=== PATIENT | male | born 1975 | race African-American/Black ===

== ENCOUNTER 2024-08-15 04:07 | Emergency (ER) | payer BC ==
--- NOTE | 2024-08-15 04:40 | ER ---
Nurse's Notes [facility] Name: Bobby Guajardo Age: 48 yrs Sex: Male : 1975 Arrival Date: 08/15/2024 Time: 04:07 Bed 20 Private MD: Diagnosis: Acute serous otitis media, left ear Presentation: 08/15 04:31 Chief complaint: Patient states: left ear pain that started tonight. Coronavirus cp4 screen: Client denies travel out of the [place] in the last 14 days. At this time, the client does not indicate any symptoms associated with coronavirus-19. Ebola Screen: Patient negative for fever greater than or equal to 101.5 degrees Fahrenheit, and additional compatible Ebola Virus Disease symptoms Patient denies exposure to infectious person. Patient denies travel to an Ebola-affected area in the 21 days before illness onset. No symptoms or risks identified at this time. Initial Sepsis Screen: Does the patient meet any 2 criteria? No. Patient's initial sepsis screen is negative. Does the patient have a suspected source of infection? No. Patient's initial sepsis screen is negative. Risk Assessment: Do you want to hurt yourself or someone else? Patient reports no desire to harm self or others. Onset of symptoms was August 14, 2024. 04:31 Method Of Arrival: Ambulatory cp4 04:31 Acuity: DONTE 4 cp4 Triage Assessment: 04:32 General: Appears in no apparent distress. comfortable, Behavior is calm, cooperative, cp4 appropriate for age. Pain: Complains of pain in left ear. EENT: Reports pain in left ear. Neuro: Level of Consciousness is awake, alert, obeys commands, Oriented to person, place, time, situation. Cardiovascular: Patient's skin is warm and dry. Respiratory: Airway is patent Respiratory effort is even, unlabored. GI: No signs and/or symptoms were reported involving the gastrointestinal system. : No signs and/or symptoms were reported regarding the genitourinary system. Derm: No signs and/or symptoms reported regarding the dermatologic system. Musculoskeletal: No signs and/or symptoms reported regarding the musculoskeletal system. Historical: - Allergies: 04:32 No Known Allergies; cp4 - Immunization history:: Adult Immunizations up to date. - Infectious Disease History:: Denies. Denies. - Social history:: Smoking status: Patient denies any tobacco usage or history of. Screenin:34 [facility] ED Fall Risk Assessment (Adult) History of falling in the last 3 months, cp4 including since admission No falls in past 3 months (0 pts) Confusion or Disorientation No (0 pts) Intoxicated or Sedated No (0 pts) Impaired Gait No (0 pts) Mobility Assist Device Used No (0 pt) Altered Elimination No (0 pt) Score/Fall Risk Level 0 - 2 = Low Risk Oriented to surroundings, Maintained a safe environment, Assessed \T\ reinforced patient's understanding of fall precautions, Hourly rounding (assess needs \T\ fall precautionary measures) done. Abuse screen: Denies threats or abuse. Nutritional screening: No deficits noted. Tuberculosis screening: No symptoms or risk factors identified. Assessment: 04:34 Reassessment: No changes from previously documented assessment. cp4 04:52 Reassessment: Patient left prior to getting medication. cp4 Vital Signs: 04:31 BP 132 / 93; Pulse 54; Resp 18; Temp 98.1; Pulse Ox 100% ; Weight 88.45 kg; Height 6 cp4 ft. 2 in. ; Pain 7/10; 04:31 Body Mass Index 25.04 (88.45 kg, 187.96 cm) cp4 04:31 Pain Scale: Adult cp4 ED Course: 04:12 Patient arrived in ED. gm2 04:19 Sam Baez MD is Attending Physician. ec2 04:31 Reyna Ross is Primary Nurse. cp4 04:32 Triage completed. cp4 04:32 Arm band placed on right wrist. Patient placed in waiting room. cp4 04:34 Bed in low position. Call light in reach. Side rails up X 1. Provided Education on: ear cp4 pain. 04:34 No provider procedures requiring assistance completed. cp4 04:52 Patient did not have IV access during this emergency room visit. cp4 Administered Medications: 04:51 Not Given (Patient Refused): amoxicillin- mg PO once cp4 04:51 Not Given (Patient Refused): ofloxacindrops 0.3 % 1 drops Ophthalmic once; give otic cp4 Medication: 04:34 VIS not applicable for this client. cp4 Outcome: 04:40 Discharge ordered by . ec2 04:52 Discharged to home ambulatory, cp4 04:52 Condition: stable 04:52 Discharge instructions given to patient, Instructed on discharge instructions, follow up and referral plans. medication usage, Demonstrated understanding of instructions, follow-up care, medications, Prescriptions given X 2, 04:53 Patient left the ED. cp4 Signatures: Sam Baez MD MD ec2 Reyna Ross cp4 Kandi Noonan 2
--- NOTE | 2024-08-15 04:40 | EDPHYS ---
Physician Documentation [facility] Name: Bobby Guajardo Age: 48 yrs Sex: Male : 1975 Arrival Date: 08/15/2024 Time: 04:07 Bed 20 Private MD: ED Physician Sam Baez HPI: 08/15 04:41 This 48 yrs old Black Male presents to ER via Ambulatory with complaints of Ear Pain. ec2 04:41 Patient arrives today for evaluation of left ear pain. Patient reports that he has been ec2 experiencing left ear pain since earlier this morning. No fevers or chills, no nausea or vomiting. No drainage.. Historical: - Allergies: 04:32 No Known Allergies; cp4 - Immunization history:: Adult Immunizations up to date. - Infectious Disease History:: Denies. Denies. - Social history:: Smoking status: Patient denies any tobacco usage or history of. ROS: 04:41 Constitutional: as per hpi ec2 Exam: 04:41 Constitutional: GEN: NAD Head: atraumatic Eyes: EOMI Ears: External ears are normal. ec2 Cerumen impaction noted in the left ear, does have erythema in the ear canal. CV: regular rate LUNGS: no respiratory distress ABD: non-distended SKIN: no evidence of rashes MSK: no evidence of trauma Vital Signs: 04:31 BP 132 / 93; Pulse 54; Resp 18; Temp 98.1; Pulse Ox 100% ; Weight 88.45 kg; Height 6 cp4 ft. 2 in. ; Pain 7/10; 04:31 Body Mass Index 25.04 (88.45 kg, 187.96 cm) cp4 04:31 Pain Scale: Adult cp4 MDM: 04:24 Medical Screening Exam initiated ec2 04:41 Data reviewed: vital signs. ED course: Patient arrives today for ear pain. Examination ec2 remarkable for otic findings as above. Will treat for otitis media. Will discharge to home per return precautions given.. Administered Medications: 04:51 Not Given (Patient Refused): amoxicillin-[id number] mg PO once cp4 04:51 Not Given (Patient Refused): ofloxacindrops 0.3 % 1 drops Ophthalmic once; give otic cp4 Disposition Summary: 08/15/24 04:40 Discharge Ordered Notes: Location: Home ec2 Condition: Stable ec2 Diagnosis - Acute serous otitis media, left ear ec2 Followup: ec2 - With: Private Physician - When: - Reason: Re-evaluation by your physician Discharge Instructions: - Discharge Summary Sheet ec2 - Otitis Media, Adult ec2 Forms: - Medication Reconciliation Form ec2 - Antibiotic Education ec2 - Prescription Opioid Use ec2 - Patient Portal Instructions ec2 - Leadership Thank You Letter ec2 Prescriptions: - ofloxacin 0.3 % Otic drops - instill 10 drop OTIC route every 24 hours; 5 milliliter; Refills: 0, Product ec2 Selection Permitted - Augmentin 875-125 mg Oral Tablet - take 1 tablet ORAL route every 12 hours for 10 days; 20 tablet; Refills: 0, ec2 Product Selection Permitted Signatures: Sam Baez MD MD ec2 Reyna Ross cp4
[2024-08-15 05:01] VITALS: BP 132/93; TEMP 98.1; O2SAT 100
== END 2024-08-15 04:53 | disposition home or self-care (01) ==
LOC: ER 04:07
DX: H65.02 Acute serous otitis media, left ear (principal); H61.22 Impacted cerumen, left ear
CPT/HCPCS: 99283

== ENCOUNTER 2024-11-14 06:53 | Emergency (ER) | payer SELFPAY ==
[2024-11-14] MEDS ORDERED: ACETAMINOPHEN 500 MG TAB ONE (07:29)
[2024-11-14] MEDS ORDERED: dexAMETHasone 10 MG/ML VIAL ONE (07:32)
[2024-11-14] MEDS ORDERED: NA CHLORIDE 0.9% 250 ML ONE (07:33)
[2024-11-14] MEDS ORDERED: METOCLOPRAMIDE 10 MG/2mL INJ ONE (07:33)
[2024-11-14] MEDS ORDERED: KETOROLAC 30 MG/ML INJ ONE (07:33)
[2024-11-14 07:59] LABS: Absolute Lymphocytes (CBC) 1.5 K/uL (0.7-4.9); Absolute Monocytes 1.1 K/uL (0.1-1.3); Absolute Neutrophil 6.8 K/uL (1.8-8.0); Basophils % 0.5 % (0-1.3); Hematocrit 44.2 % (39.6-49.0); Hemoglobin 14.8 g/dL (13.6-17.9); Lymphocytes % 15.8 % (15.3-44.8); MCHC 33.5 g/dL (32.0-36.0); MCV 95.5 fL (80-100); MPV 7.8 fL (7.6-11.3); Monocytes % 11.5 % (3.3-12.3); Neutrophils % 72.2 % (41.7-73.7); Nucleated Red Blood Cells % 0.1 % (0-0); Platelets 172 thou/uL (152-406); RBC Red Blood Cell Count 4.63 M/uL (4.33-5.43); Red Cell Distribution Width 14.3 % (12.1-15.2)
[2024-11-14 08:07] LABS: Anion Gap 7.7 mEq/L (5.0-15.0); Potassium 3.7 mEq/L (3.5-5.1)
[2024-11-14 08:18] LABS: SARS-CoV-2 Antigen CONTROL BLUE LINE VIS/BG OK; SARS-CoV-2 Antigen Rapid Res Negative (Negative)
--- NOTE | 2024-11-14 09:29 | ER ---
Nurse's Notes [facility] Name: Bobby Guajardo Age: 49 yrs Sex: Male : 1975 Arrival Date: 11/14/2024 Time: 06:53 Bed 6 Private MD: Diagnosis: Viral infection, unspecified;Influenza due to identified novel influenza A virus Presentation: 11/14 07:13 Chief complaint: Patient states: COUGH, CONGESTION, AND SORE THROAT X2 DAYS. 6 Coronavirus screen: At this time, the client does not indicate any symptoms associated with coronavirus-19. Ebola Screen: No symptoms or risks identified at this time. Initial Sepsis Screen: Does the patient meet any 2 criteria? No. Patient's initial sepsis screen is negative. Does the patient have a suspected source of infection? No. Patient's initial sepsis screen is negative. Risk Assessment: Do you want to hurt yourself or someone else? Patient reports no desire to harm self or others. Onset of symptoms was November 14, 2024. 07:13 Method Of Arrival: Ambulatory [facility] 07:13 Acuity: DONTE 4 kc6 Historical: - Allergies: 07:14 No Known Allergies; kc6 - PMHx: 07:14 Atrial fibrillation; Hypercholesterolemia; kc6 - PSHx: 07:14 None; kc6 - Immunization history:: Adult Immunizations up to date. - Infectious Disease History:: Denies. - Social history:: Smoking status: Patient denies any tobacco usage or history of. Screenin:14 [facility] ED Fall Risk Assessment (Adult) History of falling in the last 3 months, kc6 including since admission No falls in past 3 months (0 pts) Confusion or Disorientation No (0 pts) Intoxicated or Sedated No (0 pts) Impaired Gait No (0 pts) Mobility Assist Device Used No (0 pt) Altered Elimination No (0 pt) Score/Fall Risk Level 0 - 2 = Low Risk Oriented to surroundings, Maintained a safe environment, Educated pt \T\ family on fall prevention, incl call for assistance when getting out of bed. Abuse screen: Denies threats or abuse. Denies injuries from another. Nutritional screening: No deficits noted. Tuberculosis screening: No symptoms or risk factors identified. Assessment: 07:15 General: Appears in no apparent distress. uncomfortable, well groomed, well developed, kc6 Behavior is calm, cooperative, appropriate for age. Pain: Complains of pain in mid-sternal area Pain does not radiate. Pain currently is 10 out of 10 on a pain scale. Neuro: Level of Consciousness is awake, alert, obeys commands, Oriented to person, place, time, situation, Appropriate for age. Cardiovascular: Reports chest pain, Heart tones S1 S2 present Capillary refill < 3 seconds. Respiratory: Reports cough that is productive, pain with cough pain with respiration Airway is patent Trachea midline Respiratory effort is even, unlabored, Respiratory pattern is regular, symmetrical. GI: No signs and/or symptoms were reported involving the gastrointestinal system. : No signs and/or symptoms were reported regarding the genitourinary system. EENT: Reports nasal congestion pain when swallowing. Derm: No signs and/or symptoms reported regarding the dermatologic system. Skin is intact, is healthy with good turgor, Skin is pink, warm \T\ dry. Musculoskeletal: No signs and/or symptoms reported regarding the musculoskeletal system. Circulation, motion, and sensation intact. Range of motion: intact in all extremities. 08:13 Reassessment: Patient appears in no apparent distress at this time. No changes from [facility] previously documented assessment. Patient and/or family updated on plan of care and expected duration. Pain level reassessed. Patient is alert, oriented x 3, equal unlabored respirations, skin warm/dry/pink. 09:45 Reassessment: Patient appears in no apparent distress at this time. Patient and/or hb family updated on plan of care and expected duration. Pain level reassessed. Patient is alert, oriented x 3, equal unlabored respirations, skin warm/dry/pink. Vital Signs: 07:13 BP 136 / 80; Pulse 77; Resp 16 S; Temp 99.2(O); Pulse Ox 97% on R/A; Weight 86.18 kg kc6 (R); Height 6 ft. 2 in. (R); Pain 10/10; 07:13 Body Mass Index 24.39 (86.18 kg, 187.96 cm) [facility] 07:13 Pain Scale: Adult [facility] ED Course: 06:55 Patient arrived in ED. jj6 07:00 Sam Baez MD is Attending Physician. ec2 07:13 uSsy Hernandez RN is Primary Nurse. kc6 07:14 Triage completed. kc6 07:14 Arm band placed on. kc6 07:15 Patient has correct armband on for positive identification. Bed in low position. Call kc6 light in reach. Side rails up X 1. Pulse ox on. NIBP on. Door closed. Noise minimized. Lights dimmed. Pillow given. 07:54 Initial lab(s) drawn, by me, sent to lab. Inserted saline lock: 22 gauge in left kb4 forearm, using aseptic technique. Blood collected. Flushed with 10 mL NS. 09:10 COVID swab sent to lab. Flu and/or RSV swab sent to lab. Strep swab sent to lab. kb4 09:42 CXR XRAY In Process Unspecified. EDMS 09:45 No provider procedures requiring assistance completed. IV discontinued, intact, hb bleeding controlled, No redness/swelling at site. Pressure dressing applied. Administered Medications: 07:47 Drug: Acetaminophen PO 1000 mg PO once Route: PO; kc6 08:14 Follow up: Response: No adverse reaction kc6 07:48 Drug: metoCLOPramide IVP 10 mg IVP once; over 1 to 2 minutes Route: IVP; Site: left kc6 antecubital; 08:14 Follow up: Response: No adverse reaction kc6 07:48 Drug: Ketorolac IVP 15 mg IVP once Route: IVP; Site: left antecubital; kc6 08:14 Follow up: Response: No adverse reaction kc6 07:48 Drug: Decadron - Dexamethasone IVP 10 mg IVP once Route: IVP; Site: left antecubital; kc6 08:14 Follow up: Response: No adverse reaction kc6 07:48 Drug: NS 0.9% IV 250 ml IV at bolus once; to be given as a bolus over 30 minutes Route: kc6 IV; Rate: bolus; Site: left antecubital; 08:14 Follow up: Response: No adverse reaction; IV Status: Completed infusion; IV Intake: kc6 250ml Medication: 09:46 VIS not applicable for this client. hb Intake: 08:14 IV: 250ml; Total: 250ml. kc6 Outcome: 09:29 Discharge ordered by ec2 09:45 Discharged to home ambulatory, hb 09:45 Condition: stable 09:45 Discharge instructions given to patient, Instructed on discharge instructions, follow up and referral plans. medication usage, Demonstrated understanding of instructions, follow-up care, medications, Prescriptions given X 3 09:46 Patient left the ED. Signatures: Dispatcher [employer] Luna Gomez RN RN Flakita Simon6 Susy Hernandez RN RN kc6 Sam Baez MD MD ec2 Leonarda Ferreira kb4
--- NOTE | 2024-11-14 09:30 | EDPHYS ---
Physician Documentation [facility] Name: Bobby Guajardo Age: 49 yrs Sex: Male : 1975 Arrival Date: 11/14/2024 Time: 06:53 Bed 6 Private MD: ED Physician Sam Baez HPI: 11/14 07:20 This 49 yrs old Black Male presents to ER via Ambulatory with complaints of Cough, ec2 Congestion, Sore Throat. 07:20 Patient arrives today for evaluation of URI signs and symptoms. Reports 2 days of cough ec2 and cold symptoms along with sore throat, odynophagia, nausea. Reports decreased p.o. intake, fatigue and subjective fevers and chills.. Historical: - Allergies: 07:14 No Known Allergies; kc6 - PMHx: 07:14 Atrial fibrillation; Hypercholesterolemia; kc6 - PSHx: 07:14 None; kc6 - Immunization history:: Adult Immunizations up to date. - Infectious Disease History:: Denies. - Social history:: Smoking status: Patient denies any tobacco usage or history of. ROS: 07:21 Constitutional: as per hpi ec2 Exam: 07:21 Constitutional: GEN: NAD Head: atraumatic Eyes: EOMI Ears: External ears are ec2 normal. CV: regular rate LUNGS: no respiratory distress, no focal lung deficits ABD: non-distended SKIN: no evidence of rashes MSK: no evidence of trauma Vital Signs: 07:13 BP 136 / 80; Pulse 77; Resp 16 S; Temp 99.2(O); Pulse Ox 97% on R/A; Weight 86.18 kg kc6 (R); Height 6 ft. 2 in. (R); Pain 10/10; 07:13 Body Mass Index 24.39 (86.18 kg, 187.96 cm) kc6 07:13 Pain Scale: Adult kc6 MDM: 07:11 Medical Screening Exam initiated ec2 07:21 Data reviewed: vital signs, nurses notes. ED course: patient arrives today for upper ec2 respiratory symptoms. Examination is revealing for nontoxic hemodynamically stable individuals otherwise in no acute distress. Will obtain viral swabs, chest x-ray. Suspect viral infection.. 09:29 ED course: Chest x-ray independently reviewed and interpreted by me, shows no acute ec2 intrathoracic process, no lobar pneumonia. Presentation is with the influenza. Will discharge home. Return precautions given.. 11/14 07:14 Order name: Strep ec2 11/14 07:14 Order name: Influenza Screen (a \T\ B); Complete Time: 08:12 ec2 11/14 07:14 Order name: SARS RAPID; Complete Time: 08:40 ec2 11/14 07:14 Order name: RSV; Complete Time: 08:54 ec2 11/14 07:20 Order name: CBC with Diff; Complete Time: 08:12 ec2 11/14 07:20 Order name: BMP; Complete Time: 08:12 ec2 11/14 08:15 Order name: Throat Culture EDMS 11/14 08:39 Order name: CXR XRAY ec2 11/14 07:20 Order name: IV; Complete Time: 07:48 ec2 Administered Medications: 07:47 Drug: Acetaminophen PO 1000 mg PO once Route: PO; kc6 08:14 Follow up: Response: No adverse reaction kc6 07:48 Drug: metoCLOPramide IVP 10 mg IVP once; over 1 to 2 minutes Route: IVP; Site: left kc6 antecubital; 08:14 Follow up: Response: No adverse reaction kc6 07:48 Drug: Ketorolac IVP 15 mg IVP once Route: IVP; Site: left antecubital; kc6 08:14 Follow up: Response: No adverse reaction kc6 07:48 Drug: Decadron - Dexamethasone IVP 10 mg IVP once Route: IVP; Site: left antecubital; kc6 08:14 Follow up: Response: No adverse reaction kc6 07:48 Drug: NS 0.9% IV 250 ml IV at bolus once; to be given as a bolus over 30 minutes Route: kc6 IV; Rate: bolus; Site: left antecubital; 08:14 Follow up: Response: No adverse reaction; IV Status: Completed infusion; IV Intake: kc6 250ml Disposition Summary: 11/14/24 09:29 Discharge Ordered Notes: Location: Home ec2 Condition: Stable ec2 Diagnosis - Viral infection, unspecified ec2 - Influenza due to identified novel influenza A virus ec2 Followup: ec2 - With: Private Physician - When: - Reason: Re-evaluation by your physician Discharge Instructions: - Discharge Summary Sheet ec2 - Viral Illness, Adult ec2 Forms: - Work release form eb - Medication Reconciliation Form ec2 - Antibiotic Education ec2 - Prescription Opioid Use ec2 - Patient Portal Instructions ec2 - Leadership Thank You Letter ec2 Prescriptions: - Zofran 4 mg Oral Tablet - take 1 tablet ORAL route every 12 hours As needed; 20 tablet; Refills: 0, ec2 Product Selection Permitted - Tessalon Perles 100 mg Oral Capsule - take 1 capsule ORAL route every 8 hours As needed; 15 capsule; Refills: 0, ec2 Product Selection Permitted - Prednisone 20 mg Oral Tablet - take 2 tablets ORAL route once daily for 5 days; 10 tablet; Refills: 0, Product ec2 Selection Permitted Signatures: Dispatcher [employer] Susy Avilez RN RN kc6 Sam Baez MD MD ec2 Corrections: (The following items were deleted from the chart) 07:16 07:16 Group A Streptococcus Rapid Sc+BA.LAB.BRZ ordered. DAMIEN QUEZADA
--- NOTE | 2024-11-14 09:46 | RAD REPORT ---
EXAM: Chest Single View HISTORY: coug COMPARISON: None. FINDINGS: LUNGS/PLEURA: The lungs are clear. No pleural effusions or pneumothorax. No pulmonary edema. MEDIASTINUM: The mediastinal silhouette is within normal limits. CARDIAC: The cardiac silhouette is within normal limits. UPPER ABDOMEN: No significant abnormality. BONES: No acute abnormality. LINES/TUBES/OTHER: N/A IMPRESSION: No evidence of acute cardiopulmonary disease.
[2024-11-14 10:05] VITALS: BP 136/80; TEMP 99.2; O2SAT 97
== END 2024-11-14 09:46 | disposition home or self-care (01) ==
LOC: ER 06:53
DX: J10.1 Influenza due to other identified influenza virus with other respiratory manifestations (principal); Z11.52 Encounter for screening for COVID-19
CPT/HCPCS: 36415; 71045; 80048; 85025; 87070; 87081; 87804; 87807; 87811; 96365; 96375; 99284; J1100; J2765; J7050

== ENCOUNTER 2024-12-01 17:33 | Emergency (ER) | payer SELFPAY ==
[2024-12-01 18:48] LABS: Specific Gravity 1.026 (1.005-1.030); Urine Bilirubin NEGATIVE (Negative); Urine Blood Negative (Negative); Urine Clarity Clear (Clear); Urine Color Light-Yellow (Yellow); Urine Glucose NEGATIVE (Negative); Urine Ketones NEGATIVE (Negative); Urine Microscopic Reflex YN NO UMIC; Urine Nitrite NEGATIVE (Negative); Urine Protein NEGATIVE (Negative); Urine Urobilinogen 2+ (Normal); Urine pH 6.5 (5.0-7.0)
--- NOTE | 2024-12-01 19:28 | RAD REPORT ---
EXAMINATION: TWO VIEW CHEST XR CLINICAL INDICATION: Male, 49 years old. [facility] MAIN Cough;Dyspnea Bed Name: [facility] TECHNIQUE: 2 view radiographs of the chest were performed. COMPARISON: 11/14/2024 FINDINGS: The lungs are well inflated and clear. No pneumothorax or sizable effusion. The heart is normal in si ze. Mediastinal contours are unremarkable. IMPRESSION: No acute or significant abnormalities.
--- NOTE | 2024-12-01 19:48 | EDPHYS ---
Physician Documentation [facility] Name: Bobby Guajardo Age: 49 yrs Sex: Male : 1975 Arrival Date: 12/01/2024 Time: 17:33 Bed DX4 Private MD: ED Physician Ponce Ruiz HPI: 12/01 18:00 This 49 yrs old Black Male presents to ER via Unassigned with complaints of Cough, kb Congestion. 18:00 Pt is a 49 year old male who presents for shortness of breath and chills that has been kb ongoing since he had the flu 3 weeks ago. Also reports he has been drinking a lot of water, but his urine remains dark. Denies fever. Still having slight cough when he takes a deep breath. Historical: - Allergies: 18:11 No Known Allergies; iw - PMHx: 18:11 Atrial fibrillation; Hypercholesterolemia; iw - Immunization history:: Adult Immunizations up to date. - Infectious Disease History:: Denies. - Social history:: Smoking status: unknown. ROS: 18:00 Constitutional: As per HPI kb Exam: 18:00 Constitutional: This is a well developed, well nourished patient who is awake, alert, kb and in no acute distress. Head/Face: Normocephalic, atraumatic. ENT: Moist Mucous membranes Cardiovascular: Regular rate Respiratory: Respirations even and unlabored. No increased work of breathing. Talking in full sentences Abdomen/GI: Soft, non-tender. No distention Skin: Warm, dry with normal turgor. Normal color. MS/ Extremity: Pulses equal, no cyanosis. Neurovascular intact. Full, normal range of motion. Neuro: Awake and alert, GCS 15, oriented to person, place, time, and situation. Vital Signs: 18:10 BP 121 / 79; Pulse 70; Resp 15; Temp 97.2; Pulse Ox 99% ; Weight 89.81 kg; Height 6 ft. iw 2 in. ; 18:10 Body Mass Index 25.42 (89.81 kg, 187.96 cm) iw MDM: 17:41 Medical Screening Exam initiated kb 19:47 Differential Diagnosis: Bronchitis Influenza Upper Respiratory Infection Viral Syndrome kb Pneumonia. Data reviewed: vital signs, nurses notes. Counseling: I had a detailed discussion with the patient and/or guardian regarding the historical points, exam findings, and any diagnostic results supporting the discharge/admit diagnosis, lab results, radiology results, the need for outpatient follow up, a family practitioner, to return to the emergency department if symptoms worsen or persist or if there are any questions or concerns that arise at home. 12/01 18:02 Order name: Urinalysis w/ reflexes; Complete Time: 18:54 kb 12/01 18:02 Order name: Chest Pa And Lat (2 Views) XRAY; Complete Time: 19:29 kb Administered Medications: No medications were administered Disposition: 21:02 Co-signature as Attending Physician, Ponce Ruiz MD I reviewed the patient's care rt provided by the Advanced Practice Provider and agree with the diagnosis and treatment plan. Disposition Summary: 12/01/24 19:47 Discharge Ordered Notes: Location: Home kb Condition: Stable kb Diagnosis - Cough kb Followup: kb - With: Emergency Department - When: As needed - Reason: Worsening of condition Followup: kb - With: Private Physician - When: 2 - 3 days - Reason: Recheck today's complaints, Continuance of care, Re-evaluation by your physician Discharge Instructions: - Discharge Summary Sheet kb - Cough, Adult, [id number] kb Forms: - Medication Reconciliation Form kb - Antibiotic Education kb - Prescription Opioid Use kb - Patient Portal Instructions kb - Leadership Thank You Letter kb Prescriptions: - albuterol sulfate 90 mcg/actuation Inhalation HFA Aerosol Inhaler - inhale 2 puff INHALATION route every 4-6 hours As needed; 1 unit; Refills: 0, kb Product Selection Permitted - Tessalon Perles 100 mg Oral Capsule - take 1 capsule ORAL route every 8 hours As needed; 15 capsule; Refills: 0, kb Product Selection Permitted Signatures: Dispatcher [employer] Sharron Jefferson, CONFERENCE TRANSLATOR-C CONFERENCE TRANSLATOR-Edwige García, Ponce Neil RN, MD MD rt Corrections: (The following items were deleted from the chart) 18:02 18:02 Urinalysis+U.LAB.BRZ ordered. DAMIEN QUEZADA
--- NOTE | 2024-12-01 19:48 | ER ---
Nurse's Notes [facility] Name: Bobby Guajardo Age: 49 yrs Sex: Male : 1975 Arrival Date: 12/01/2024 Time: 17:33 Bed DX4 Private MD: Diagnosis: Cough Presentation: 12/01 18:02 Chief complaint: Patient states: flu a few weeks ago , sill having SOB , dark colored iw urine. Coronavirus screen: Client presents with at least one sign or symptom that may indicate coronavirus-19. Ebola Screen: No symptoms or risks identified at this time. Initial Sepsis Screen: Does the patient meet any 2 criteria? No. Patient's initial sepsis screen is negative. Does the patient have a suspected source of infection? No. Patient's initial sepsis screen is negative. Risk Assessment: Do you want to hurt yourself or someone else? Patient reports no desire to harm self or others. 18:02 Acuity: DONTE 4 iw 18:02 Method Of Arrival: Ambulatory iw 18:10 Onset of symptoms is unknown. iw Triage Assessment: 20:16 General: Appears in no apparent distress. vc1 20:19 General: Behavior is calm, cooperative. Pain: Complains of pain in chest. EENT: No vc1 deficits noted. No signs and/or symptoms were reported regarding the EENT system. Neuro: Level of Consciousness is awake, alert, obeys commands, Oriented to person, place, time, situation, Appropriate for age. Cardiovascular: Capillary refill < 3 seconds. Respiratory: Airway is patent Respiratory effort is even, unlabored, Respiratory pattern is regular, symmetrical, Breath sounds are clear bilaterally. GI: No deficits noted. No signs and/or symptoms were reported involving the gastrointestinal system. : No deficits noted. No signs and/or symptoms were reported regarding the genitourinary system. Derm: Skin is intact, is healthy with good turgor, Skin is dry. Musculoskeletal: Circulation, motion, and sensation intact. Range of motion: intact in all extremities. Historical: - Allergies: 18:11 No Known Allergies; iw - PMHx: 18:11 Atrial fibrillation; Hypercholesterolemia; iw - Immunization history:: Adult Immunizations up to date. - Infectious Disease History:: Denies. - Social history:: Smoking status: unknown. Screenin:[facility] Fall Risk Assessment (Adult) History of falling in the last 3 months, vc1 including since admission No falls in past 3 months (0 pts) Confusion or Disorientation No (0 pts) Intoxicated or Sedated No (0 pts) Impaired Gait No (0 pts) Mobility Assist Device Used No (0 pt) Altered Elimination No (0 pt) Score/Fall Risk Level 0 - 2 = Low Risk Oriented to surroundings, Maintained a safe environment, Educated pt \T\ family on fall prevention, incl call for assistance when getting out of bed. Abuse screen: Denies threats or abuse. Nutritional screening: No deficits noted. Tuberculosis screening: No symptoms or risk factors identified. Vital Signs: 18:10 BP 121 / 79; Pulse 70; Resp 15; Temp 97.2; Pulse Ox 99% ; Weight 89.81 kg; Height 6 ft. iw 2 in. ; 18:10 Body Mass Index 25.42 (89.81 kg, 187.96 cm) iw ED Course: 17:34 Patient arrived in ED. al6 17:41 [facility]C [facility] kb 17:41 Ponce Ruiz MD is Attending Physician. kb 18:03 Triage completed. iw 18:11 Arm band placed on. iw 18:27 Chest Pa And Lat (2 Views) XRAY In Process Unspecified. EDMS 20:15 Patient has correct armband on for positive identification. seen in diagnostic chair. vc1 20:16 No provider procedures requiring assistance completed. Patient did not have IV access vc1 during this emergency room visit. 20:21 Provided Education on: take medication. vc1 Administered Medications: No medications were administered Medication: 20:15 VIS not applicable for this client. vc1 Outcome: 19:47 Discharge ordered by . kb 20:21 Discharged to home ambulatory, vc1 20:21 Condition: stable 20:21 Discharge instructions given to patient, Instructed on discharge instructions, follow up and referral plans. Demonstrated understanding of instructions, follow-up care, medications, Prescriptions given X 2, 20:21 Patient left the ED. vc1 Signatures: Dispatcher [employer] EDMS Sharron Starks FNP-C FNP-Ckb Williams, Irene, RN RN iw Siobhan Rowley RN RN vc1 Simi Golden al6 Corrections: (The following items were deleted from the chart) 18:10 18:10 Pulse 70bpm; Resp 15bpm; Pulse Ox 99%; Temp 97.2F; 89.81 kg; Height 6 ft. 2 in.; iw BMI: 25.4; iw
[2024-12-01 20:36] VITALS: BP 121/79; TEMP 97.2; O2SAT 99
== END 2024-12-01 20:21 | disposition home or self-care (01) ==
LOC: ER 17:33
DX: R05.9 Cough, unspecified (principal)
CPT/HCPCS: 71046; 81003

== ENCOUNTER 2024-12-04 22:25 | Emergency (ER) | payer SELFPAY ==
[2024-12-04] MEDS ORDERED: ONDANSETRON 4 MG/2 ML VIAL ONE (23:16)
[2024-12-04] MEDS ORDERED: MECLIZINE HCL 12.5 MG TAB ONE (23:17)
[2024-12-04] MEDS ORDERED: NA CHLORIDE 0.9% 1,000 ML ONE (23:17)
--- NOTE | 2024-12-04 23:17 | RAD REPORT ---
EXAM DESCRIPTION: Chest Single View CLINICAL HISTORY: CHEST PAIN COMPARISON: None TECHNIQUE: 2 AP views of the chest. FINDINGS: Lung volumes adequate. Cardiac silhouette is normal in size. No pneumothorax. No large pleural effusion. No focal consolidation. No acute bony finding. IMPRESSION: No acute cardiopulmonary findings. Electronically signed by: Arlene Hickman MD 12/04/2024 11:05 PM [facility] Z9 Transcribed Date/Time: 12/04/2024 11:17 PM
[2024-12-04 23:48] LABS: Absolute Eosinophils 0.1 K/uL (0-0.5); Absolute Lymphocytes (CBC) 2.2 K/uL (0.7-4.9); Absolute Monocytes 0.7 K/uL (0.1-1.3); Basophils % 0.4 % (0-1.3); Eosinophils % 1.5 % (0-4.4); Hematocrit 38.3 % (39.6-49.0); Hemoglobin 13.1 g/dL (13.6-17.9); Lymphocytes % 31.5 % (15.3-44.8); MCH 32.2 pg (27.0-35.0); MCHC 34.2 g/dL (32.0-36.0); MCV 94.1 fL (80-100); MPV 8.1 fL (7.6-11.3); Neutrophils % 56.6 % (41.7-73.7); Nucleated Red Blood Cells % 0.3 % (0-0); Platelets 195 thou/uL (152-406); RBC Red Blood Cell Count 4.07 M/uL (4.33-5.43); Red Cell Distribution Width 13.8 % (12.1-15.2)
[2024-12-05 00:10] LABS: PT Prothrombin Time 12.9 SECONDS (10.0-13.0); Protime INR 1.14
[2024-12-05 00:25] LABS: Albumin 3.3 g/dL (3.4-5.0); Bilirubin Direct 0.2 mg/dL (0-0.2); Bilirubin Indirect, Calculated 1.1 mg/dL (0.2-0.8); Bilirubin Total 1.3 mg/dL (0.2-1.0); Globulin 3.3 g/dL (2.3-3.5); Protein, Total 6.6 g/dL (6.4-8.2); Troponin High Sensitivity 10.2 pg/mL (<58.9)
[2024-12-05 00:26] LABS: Magnesium 2.2 mg/dL (1.6-2.4)
--- NOTE | 2024-12-05 01:23 | ER ---
Nurse's Notes [facility] Name: Bobby Guajardo Age: 49 yrs Sex: Male : 1975 Arrival Date: 12/04/2024 Time: 22:25 Bed 8 Private MD: Diagnosis: Acute labyrinthitis, Acute positional peripheral vertigo Presentation: 12/04 22:32 Chief complaint: Patient states: dizziness and nausea since this morning. ha1 22:32 Coronavirus screen: Client denies travel out of the [place] in the last 14 days. Ebola ha1 Screen: No symptoms or risks identified at this time. Initial Sepsis Screen: Does the patient meet any 2 criteria? RR > 20 per min. Does the patient have a suspected source of infection? No. Patient's initial sepsis screen is negative. Risk Assessment: Do you want to hurt yourself or someone else? Patient reports no desire to harm self or others. Onset of symptoms was December 04, 2024. 22:32 Method Of Arrival: Ambulatory ha1 22:32 Acuity: DONTE 3 ha1 Historical: - Allergies: 22:30 No Known Allergies; ha1 - PMHx: 22:30 Atrial fibrillation; Hypercholesterolemia; vertigo (2019); ha1 - Immunization history:: Adult Immunizations not up to date. - Infectious Disease History:: Denies. - Social history:: Smoking status: unknown. - Family history:: not pertinent. Screenin:33 [facility] ED Fall Risk Assessment (Adult) History of falling in the last 3 months, bm8 including since admission No falls in past 3 months (0 pts) Confusion or Disorientation No (0 pts) Intoxicated or Sedated No (0 pts) Impaired Gait No (0 pts) Mobility Assist Device Used No (0 pt) Altered Elimination No (0 pt) Score/Fall Risk Level 0 - 2 = Low Risk Oriented to surroundings, Maintained a safe environment, Educated pt \T\ family on fall prevention, incl call for assistance when getting out of bed, Provided non-skid footwear, Hourly rounding (assess needs \T\ fall precautionary measures) done, Used ambulatory aids as needed (educated on \T\ assisted with), Used gait belt as appropriate. Abuse screen: Denies threats or abuse. Nutritional screening: No deficits noted. Tuberculosis screening: No symptoms or risk factors identified. Assessment: 23:33 Reassessment: Patient appears in no apparent distress at this time. Patient and/or bm8 family updated on plan of care and expected duration. Pain level reassessed. Patient is alert, oriented x 3, equal unlabored respirations, skin warm/dry/pink. Patient denies pain at this time. General: Appears in no apparent distress. comfortable, Behavior is calm, cooperative, appropriate for age. Pain: Denies pain. Neuro: Level of Consciousness is awake, alert, obeys commands, Oriented to person, place, time, situation, Appropriate for age Reports dizziness, since this morning. Cardiovascular: Denies chest pain, shortness of breath, Capillary refill < 3 seconds in bilateral fingers. Respiratory: Airway is patent Respiratory effort is even, unlabored, Respiratory pattern is regular, symmetrical, Breath sounds are clear bilaterally. GI: Abdomen is flat, non-distended, Reports nausea. : No signs and/or symptoms were reported regarding the genitourinary system. EENT: No signs and/or symptoms were reported regarding the EENT system. Derm: No signs and/or symptoms reported regarding the dermatologic system. Musculoskeletal: No signs and/or symptoms reported regarding the musculoskeletal system. 12/05 00:35 Reassessment: Patient appears in no apparent distress at this time. Patient and/or bm8 family updated on plan of care and expected duration. Pain level reassessed. Patient is alert, oriented x 3, equal unlabored respirations, skin warm/dry/pink. Patient denies pain at this time. Patient states feeling better. Patient states symptoms have improved. 01:34 Reassessment: Patient appears in no apparent distress at this time. Patient and/or bm8 family updated on plan of care and expected duration. Pain level reassessed. Patient is alert, oriented x 3, equal unlabored respirations, skin warm/dry/pink. Patient denies pain at this time. Patient states feeling better. Patient states symptoms have improved. Vital Signs: 12/04 22:32 BP 138 / 95; Pulse 56; Resp 17 S; Temp 97.6(T); Pulse Ox 100% on R/A; Weight 89.81 kg; ha1 Height 6 ft. 2 in. ; 23:33 BP 137 / 88; Pulse 56; Resp 18; Temp 97.6; Pulse Ox 100% ; Pain 0/10; bm8 03/01 00:35 BP 128 / 78; Pulse 58; Resp 16; Temp 97.6; Pulse Ox 100% ; Pain 0/10; bm8 01:29 BP 124 / 82; Pulse 52; Resp 18; Temp 97.6; Pulse Ox 100% ; Pain 0/10; bm8 12/04 22:32 Body Mass Index 25.42 (89.81 kg, 187.96 cm) ha1 23:33 Pain Scale: Adult bm8 12/05 00:35 Pain Scale: Adult bm8 01:29 Pain Scale: Adult bm8 Hunter Coma Score: 12/04 23:33 Eye Response: spontaneous(4). Motor Response: obeys commands(6). Verbal Response: bm8 oriented(5). Total: 15. 12/05 00:35 Eye Response: spontaneous(4). Motor Response: obeys commands(6). Verbal Response: bm8 oriented(5). Total: 15. 01:29 Eye Response: spontaneous(4). Motor Response: obeys commands(6). Verbal Response: bm8 oriented(5). Total: 15. 05:47 Eye Response: spontaneous(4). Motor Response: obeys commands(6). Verbal Response: sp4 oriented(5). Total: 15. NIH Stroke Scale Scores: 05:51 NIHSS Score: 0 sp4 ED Course: 12/04 22:28 Patient arrived in ED. gm2 22:38 Rick Cantu MD is Attending Physician. sp4 22:45 Triage completed. ha1 22:54 XRAY Chest (1 view) In Process Unspecified. EDMS 23:13 Luisito Cruz, RN is Primary Nurse. bm8 23:32 No provider procedures requiring assistance completed. Initial lab(s) drawn, by cain miguel sent to lab. EKG done, by ED staff, reviewed by Rick Cantu MD. Inserted saline lock: 20 gauge in right antecubital area, using aseptic technique. Blood collected. Flushed with 10 mL NS. Patient maintains SpO2 saturation greater than 95% on room air. 23:33 Patient has correct armband on for positive identification. Bed in low position. Call bm8 light in reach. Side rails up X 1. Client placed on continuous cardiac and pulse oximetry monitoring. NIBP monitoring applied. security monitor on. Pulse ox on. NIBP on. Door closed. Noise minimized. Warm blanket given. Pillow given. Verbal reassurance given. Head of bed elevated. 12/05 01:34 IV discontinued, intact, bleeding controlled, No redness/swelling at site. Pressure bm8 dressing applied. 01:34 Provided Education on: post er care. bm8 01:35 Arm band placed on right wrist. bm8 Administered Medications: 12/04 23:31 Drug: NS 0.9% IV 1000 ml IV at 1 bolus Per protocol; to be given as a bolus over 60 bm8 minutes Route: IV; Rate: 1 bolus; Site: right antecubital; 12/05 00:37 Follow up: Response: No adverse reaction; IV Status: Completed infusion; IV Intake: bm8 1000ml 12/04 23:32 Drug: Meclizine PO 50 mg PO once Route: PO; bm8 12/05 00:37 Follow up: Response: No adverse reaction bm8 12/04 23:32 Drug: Ondansetron IVP 8 mg IVP once; over 2 minutes Route: IVP; Site: right antecubital;bm8 12/05 00:37 Follow up: Response: No adverse reaction bm8 Medication: 12/04 23:33 VIS not applicable for this client. bm8 Intake: 12/05 00:37 IV: 1000ml; Total: 1000ml. bm8 Outcome: 01:23 Discharge ordered by MD. boone 01:34 Discharged to home ambulatory, bm8 01:34 Condition: stable 01:34 Discharge instructions given to patient, Instructed on discharge instructions, follow up and referral plans. no drinking with medication, no driving heavy equipment, medication usage, safety practices, Demonstrated understanding of instructions, follow-up care, medications, Prescriptions given X 2, 01:37 Patient left the ED. ha1 NIH Stroke Scale - NIH Stroke Score Date: 12/05/2024 Time: 05:51 Total Score = 0 10. Dysarthria (speech clarity - read or repeat words) - 0(Normal) 11. Extinction and Inattention (visual/tactile/auditory/spatial/personal) - 0(No abnormality) 1a. Level of Consciousness (LOC) - 0(Alert) 1b. Level of Consciousness (LOC) (Month \T\ Age) - 0(Both) 1c. LOC Commands (Open \T\ Closes Eyes/Feather Maker) - 0(Both) 2. Best Gaze (Lateral Gaze Paresis) - 0(Normal) 3. Visual Field Loss - 0(No visual loss) 4. Facial Palsy - 0(Normal) 5a. Left Arm: Motor (10-second hold) - 0(No drift) 5b. Right Arm: Motor (10-second hold) - 0(No drift) 6a. Left Leg: Motor (5-second hold - always test supine) - 0(No drift) 6b. Right Leg: Motor (5-second hold - always test supine) - 0(No drift) 7. Limb Ataxia (finger/nose \T\ heel/marroquin - test with eyes open) - 0(Absent) 8. Sensory Loss (pinprick arms/legs/face) - 0(Normal) 9. Best Language: Aphasia (description/naming/reading) - 0(No aphasia) Initials: sp4 Signatures: Dispatcher [employer] EDXochitl Daniels RN RN ha1 Rick Cantu MD MD sp4 Kandi Noonan 2 Luisito Cruz RN RN bm8 Corrections: (The following items were deleted from the chart) 12/04 22:48 22:30 PMHx: verttigo (Hypercholesterolemia); ha1 ha1
--- NOTE | 2024-12-05 01:24 | EDPHYS ---
Physician Documentation [facility] Name: Bobby Guajardo Age: 49 yrs Sex: Male : 1975 Arrival Date: 12/04/2024 Time: 22:25 Bed 8 Private MD: ED Physician Rick Cantu HPI: 12/04 22:38 This 49 yrs old Black Male presents to ER via Unassigned with complaints of Dizziness. sp4 12/05 05:47 Patient presents with acute onset of dizziness and vertigo associated with nausea.. sp4 Historical: - Allergies: 12/04 22:30 No Known Allergies; ha1 - PMHx: 22:30 Atrial fibrillation; Hypercholesterolemia; vertigo (2019); ha1 - Immunization history:: Adult Immunizations not up to date. - Infectious Disease History:: Denies. - Social history:: Smoking status: unknown. - Family history:: not pertinent. ROS: 12/05 05:47 Constitutional: Negative for fever, chills, and weight loss, positive nausea, positive sp4 vertigo, positive dizziness All other systems are negative, Exam: 05:47 Constitutional: This is a well developed, well nourished patient who is awake, alert, sp4 and in no acute distress. Head/Face: Normocephalic, atraumatic. Eyes: Pupils equal round and reactive to light, extra-ocular motions intact. Lids and lashes normal. Conjunctiva and sclera are not injected. Cornea within normal limits. Periorbital areas with no swelling, redness, or edema. ENT: Nares patent. No nasal discharge, no septal abnormalities noted. Tympanic membranes are normal and external auditory canals are clear. Oropharynx with no redness, swelling, or masses, exudates, or evidence of obstruction, uvula midline. Mucous membranes moist. Neck: Trachea midline, no thyromegaly or masses palpated, and no cervical lymphadenopathy. Supple, full range of motion without nuchal rigidity, or vertebral point tenderness. Chest/axilla: Normal chest wall appearance and motion. Nontender with no deformity. No lesions are appreciated. Cardiovascular: Regular rate and rhythm with a normal S1 and S2. No gallops, murmurs, or rubs. Normal PMI, no JVD. No pulse deficits. Respiratory: Lungs have equal breath sounds bilaterally, clear to auscultation and percussion. No rales, rhonchi or wheezes noted. No increased work of breathing, no retractions or nasal flaring. Abdomen/GI: Soft, with normal bowel sounds. No distension or tympany. No guarding or rebound. No evidence of tenderness throughout. Back: No spinal tenderness. No costovertebral tenderness. Skin: Warm, dry with normal turgor. Normal color with no rashes, no lesions, and no evidence of cellulitis. MS/ Extremity: Pulses equal, no cyanosis. Neurovascular intact. Full, normal range of motion. Neuro: Awake and alert, GCS 15, oriented to person, place, time, and situation. Cranial nerves II-XII grossly intact. Motor strength 5/5 in all extremities. Sensory grossly intact. Psych: Awake, alert, with orientation to person, place and time. Behavior, mood, and affect are within normal limits 05:47 ECG was reviewed by the Attending Physician. EKG 2314 Vital Signs: 12/04 22:32 BP 138 / 95; Pulse 56; Resp 17 S; Temp 97.6(T); Pulse Ox 100% on R/A; Weight 89.81 kg; ha1 Height 6 ft. 2 in. ; 23:33 BP 137 / 88; Pulse 56; Resp 18; Temp 97.6; Pulse Ox 100% ; Pain 0/10; bm8 12/05 00:35 BP 128 / 78; Pulse 58; Resp 16; Temp 97.6; Pulse Ox 100% ; Pain 0/10; bm8 01:29 BP 124 / 82; Pulse 52; Resp 18; Temp 97.6; Pulse Ox 100% ; Pain 0/10; bm8 12/04 22:32 Body Mass Index 25.42 (89.81 kg, 187.96 cm) ha1 23:33 Pain Scale: Adult bm8 12/05 00:35 Pain Scale: Adult bm8 01:29 Pain Scale: Adult bm8 NIH Stroke Scale Scores: 05:51 NIHSS Score: 0 sp4 Hunter Coma Score: 12/04 23:33 Eye Response: spontaneous(4). Motor Response: obeys commands(6). Verbal Response: bm8 oriented(5). Total: 15. 12/05 00:35 Eye Response: spontaneous(4). Motor Response: obeys commands(6). Verbal Response: bm8 oriented(5). Total: 15. 01:29 Eye Response: spontaneous(4). Motor Response: obeys commands(6). Verbal Response: bm8 oriented(5). Total: 15. 05:47 Eye Response: spontaneous(4). Motor Response: obeys commands(6). Verbal Response: sp4 oriented(5). Total: 15. MDM: 12/04 22:38 Medical Screening Exam initiated 4 12/05 01:22 ED course: 49-year-old male presents with acute vertigo associated with nausea. Patient sp4 is feeling unwell after he got off work today in the evening. Patient does report history of prior vertigo. Vertigo with sudden onset. 05:50 Differential diagnosis: cardiac arrhythmia, CVA, generalized weakness, head injury, sp4 TIA, vertigo. 05:51 Data reviewed: vital signs, nurses notes, lab test result(s), EKG, radiologic studies, sp4 plain films. ED course: EXAM DESCRIPTION: Chest Single View CLINICAL HISTORY: CHEST PAIN COMPARISON: None TECHNIQUE: 2 AP views of the chest. FINDINGS: Lung volumes adequate. Cardiac silhouette is normal in size. No pneumothorax. No large pleural effusion. No focal consolidation. No acute bony finding. IMPRESSION: No acute cardiopulmonary findings. . 12/04 22:38 Order name: Basic Metabolic Panel; Complete Time: 01:05 [facility] 12/04 22:38 Order name: CBC with Diff; Complete Time: 01:05 [facility] 12/04 22:38 Order name: LFT's; Complete Time: 01:05 [facility] 12/04 22:38 Order name: Magnesium; Complete Time: 01:05 [facility] 12/04 22:38 Order name: NT PRO-BNP; Complete Time: 01:05 [facility] 12/04 22:38 Order name: PT-INR; Complete Time: 01:05 [facility] 12/04 22:38 Order name: Troponin HS; Complete Time: 01:05 [facility] 12/04 22:38 Order name: XRAY Chest (1 view) [facility] 12/04 22:38 Order name: EKG; Complete Time: 22:39 [facility] 12/04 22:38 Order name: Cardiac monitoring; Complete Time: 23:32 [facility] 12/04 22:38 Order name: EKG - Nurse/Tech; Complete Time: 23:32 sp4 12/04 22:38 Order name: IV Saline Lock; Complete Time: 23:32 sp4 12/04 22:38 Order name: Labs collected and sent; Complete Time: 23:32 sp4 12/04 22:38 Order name: O2 Per Protocol; Complete Time: 23:32 sp4 12/04 22:38 Order name: O2 Sat Monitoring; Complete Time: 23:32 sp4 EC/28 23:14 Rate is 58 beats/min. Rhythm is regular, Sinus bradycardia. QRS [place] is Normal. MT sp4 interval is normal. QRS interval is normal. QT interval is normal. No Q waves. T waves are Normal. No ST changes noted. Clinical impression: No evidence of ischemia. Interpreted by me. Reviewed by me. Administered Medications: 23:31 Drug: NS 0.9% IV 1000 ml IV at 1 bolus Per protocol; to be given as a bolus over 60 bm8 minutes Route: IV; Rate: 1 bolus; Site: right antecubital; 12/05 00:37 Follow up: Response: No adverse reaction; IV Status: Completed infusion; IV Intake: bm8 1000ml 12/04 23:32 Drug: Meclizine PO 50 mg PO once Route: PO; bm8 12/05 00:37 Follow up: Response: No adverse reaction bm8 12/04 23:32 Drug: Ondansetron IVP 8 mg IVP once; over 2 minutes Route: IVP; Site: right antecubital;bm8 12/05 00:37 Follow up: Response: No adverse reaction bm8 Disposition Summary: 12/05/24 01:23 Discharge Ordered Notes: Location: Home sp4 Problem: new sp4 Symptoms: have improved sp4 Condition: Stable sp4 Diagnosis - Acute labyrinthitis, Acute positional peripheral vertigo sp4 Followup: sp4 - With: Private Physician - When: 7 - 10 days - Reason: Recheck today's complaints Discharge Instructions: - Discharge Summary Sheet sp4 - Benign Positional Vertigo sp4 Forms: - Patient Portal Instructions sp4 - Work release form bm8 Prescriptions: - Meclizine 25 mg Oral tablet - take 1 tablet ORAL route every 8 hours As needed PRN vertigo; 30 tablet; sp4 Refills: 0, Product Selection Permitted - ondansetron 8 mg Oral Tablet,disintegrating - take 1 tablet ORAL route every 8 hours PRN nausea; 30 tablet; Refills: 0, sp4 Product Selection Permitted NIH Stroke Scale - NIH Stroke Score Date: 12/05/2024 Time: 05:51 Total Score = 0 10. Dysarthria (speech clarity - read or repeat words) - 0(Normal) 11. Extinction and Inattention (visual/tactile/auditory/spatial/personal) - 0(No abnormality) 1a. Level of Consciousness (LOC) - 0(Alert) 1b. Level of Consciousness (LOC) (Month \T\ Age) - 0(Both) 1c. LOC Commands (Open \T\ Closes Eyes/Computer Technology Trainer) - 0(Both) 2. Best Gaze (Lateral Gaze Paresis) - 0(Normal) 3. Visual Field Loss - 0(No visual loss) 4. Facial Palsy - 0(Normal) 5a. Left Arm: Motor (10-second hold) - 0(No drift) 5b. Right Arm: Motor (10-second hold) - 0(No drift) 6a. Left Leg: Motor (5-second hold - always test supine) - 0(No drift) 6b. Right Leg: Motor (5-second hold - always test supine) - 0(No drift) 7. Limb Ataxia (finger/nose \T\ heel/marroquin - test with eyes open) - 0(Absent) 8. Sensory Loss (pinprick arms/legs/face) - 0(Normal) 9. Best Language: Aphasia (description/naming/reading) - 0(No aphasia) Initials: sp4 Signatures: Dispatcher [employer] Xochitl Schmidt RN RN ha1 Rick Cantu MD MD sp4 Luisito Cruz RN RN bm8 Corrections: (The following items were deleted from the chart) 12/04 22:48 22:30 PMHx: verttigo (Hypercholesterolemia); ha1 ha1
[2024-12-05 01:45] VITALS: TEMP 97.6; O2SAT 100
[2024-12-05 01:49] VITALS: BP 124/82
--- NOTE | 2024-12-07 12:09 | EKG ---
Test Date: 2024-12-04 Test Time: 23:14:16 [employer]il Biology Teacher: DEMI MEASUREMENT RESULTS: Intervals: Rate: 58 [place]: 206 QRSD: 94 QT: 404 QTc: 396 [place]: P: 66 [place]: 206 QRS: -18 T: 32 INTERPRETIVE STATEMENTS: Sinus bradycardia Otherwise normal ECG No previous ECG available for comparison Electronically Signed On 12-07-24 12:05:01 RESTAURANT KITCHEN MANAGER by Agusto Gómez
== END 2024-12-05 01:37 | disposition home or self-care (01) ==
LOC: ER 22:25
DX: H81.399 Other peripheral vertigo, unspecified ear (principal); H83.09 Labyrinthitis, unspecified ear
CPT/HCPCS: 36415; 71045; 80048; 80076; 83735; 83880; 84484; 85025; 85610; 93005; 96361; 96374; 99285; J2405; J7030; J8597